=== PATIENT | male | born 1955 | race Two or more races ===

== ENCOUNTER 2020-07-17 10:12 | Emergency (ER) | payer OTHER, MEDICAID ==
[~2020-07-17] VITALS: Ht 172.7 cm; Wt 95.3 kg
[2020-07-17 12:44] LABS: Basophils # (auto) 0.1 10 ^3/uL (0-0.2); Basophils % (auto) 0.8 % (0.0-2.0); Eosinophils # (auto) 0.1 10 ^3/uL (0-0.8); Eosinophils % (auto) 0.6 % (0.0-7.0); Hematocrit 49.7 % (41.0-53.0); Hemoglobin 16.9 g/dL (13.5-17.5); Lymphocytes # (auto) 2.3 10 ^3/uL (0.4-5.4); Lymphocytes % (auto) 23.8 % (10.0-50.0); Mean Corpuscular Hemoglobin 29.6 pg (28.0-32.0); Mean Corpuscular Volume 87.1 fL (80.0-100.0); Monocytes # (auto) 0.9 10 ^3/uL (0-1.3); Monocytes % (auto) 9.4 % (0.0-12.0); Neutrophils # (auto) 6.3 10 ^3/uL (1.6-8.6); Neutrophils % (auto) 65.4 % (37.0-80.0); Nucleated Red Blood Cells % 0.1 %; Platelet Count (auto) 263 10^3/uL (140-450); Red Blood Cells 5.71 10^6/uL (4.5-5.90); Red Cell Distribution Width 14.3 % (11.8-14.3); White Blood Cell 9.6 10^3/uL (4.4-10.8)
[2020-07-17 13:09] LABS: Albumin 3.6 g/dL (3.4-5.0); BUN/Creatinine Ratio 17.8; Calcium 8.9 mg/dL (8.5-10.1); Magnesium 2.3 mg/dL (1.6-2.6); Potassium 3.8 mmol/L (3.5-5.1)
[2020-07-17 13:12] LABS: Bilirubin, Total 0.6 mg/dL (0.2-1.0); Total Protein 7.6 g/dL (6.4-8.2)
[2020-07-17] MEDS ORDERED: IOHEXOL 300 MG/ML 100ML BOTTLE IJ ONE (14:41)
[2020-07-17 15:19] LABS: INR 2.12 (0.9-1.15); Partial Thromboplastin Time 39.6 sec (23.0-31.2)
[2020-07-17] MEDS ORDERED: dilTIAZem 25 MG/5 ML VIAL IV ONE (16:45)
[2020-07-17 17:45] VITALS: BP 133/86
== END 2020-07-17 17:28 | disposition home or self-care (01) ==
LOC: ER 10:12
DX: S13.9XXA Sprain of joints and ligaments of unspecified parts of neck, initial encounter (principal); R51.9 Headache, unspecified; E78.5 Hyperlipidemia, unspecified; I10 Essential (primary) hypertension; I25.2 Old myocardial infarction; I48.91 Unspecified atrial fibrillation; Z88.6 Allergy status to analgesic agent; V43.52XA Car driver injured in collision with other type car in traffic accident, initial encounter; Y93.89 Activity, other specified; Y92.488 Other paved roadways as the place of occurrence of the external cause; Y99.8 Other external cause status
CPT/HCPCS: 36415; 70450; 71260; 72125; 74177; 80053; 83735; 84484; 85025; 85610; 85730; 93005; 96374; 99285; Q9967